=== PATIENT | female | born 1960 ===

== ENCOUNTER 2016-05-17 11:31 | Emergency (ER) | payer MEDICARE, OTHER ==
[2016-05-17] MEDS: ONDANSETRON HCL 4 MG/2 ML 4 MG in SODIUM CHLORIDE 0.9% 100 ML 100 ML IV ONE (12:07)
[2016-05-17 12:16] LABS: BASOPHILS % (AUTO) 1 % (0-3); EOSINOPHILS % (AUTO) 2 % (0-9); HEMATOCRIT 45 % (35-47); MEAN CORPUSCULAR HGB CONC 32.7 gm/dl (32.0-36.0); MEAN CORPUSCULAR VOLUME 82 fL (81-99); MONOCYTES % (AUTO) 6.2 % (0-12)
[2016-05-17] MEDS ORDERED: MORPHINE SULFATE 10 MG/ML SOL ONE ×2 (12:16→13:38)
[2016-05-17] MEDS ORDERED: ONDANSETRON HCL 4 MG/2 ML SOL ONE (12:16)
[2016-05-17 12:26] LABS: ALBUMIN 3.8 gm/dl (3.4-5.0); CALCIUM 8.9 mg/dl (8.5-10.1); POTASSIUM 4.4 mMol/L (3.5-5.1)
[2016-05-17] MEDS: SODIUM CHLORIDE 0.9% 1000ML 1,000 ML IV SCH (12:35)
[2016-05-17] MEDS: SODIUM CHLORIDE 0.9% FLUSH 10 ML SOL IV PRN (12:35)
[2016-05-17] MEDS: ONDANSETRON HCL 4 MG/2 ML SOL IV ONE (12:36)
[2016-05-17] MEDS: MORPHINE SULFATE 10 MG/ML SOL IV ONE ×2 (12:40→13:42)
[2016-05-17 13:25] VITALS: PULSE 63; TEMP 98
[2016-05-17 13:43] LABS: APPEARANCE,URINE Clear; BILIRUBIN,URINE NEGATIVE (NEGATIVE); COLOR,URINE Yellow; GLUCOSE, URINE (UA) NEGATIVE (NEGATIVE); KETONES,URINE NEGATIVE (NEGATIVE); LEUKOCYTE ESTERASE ,URINE NEGATIVE (NEGATIVE); NITRATE,URINE NEGATIVE (NEGATIVE); OCCULT BLOOD,URINE NEGATIVE (NEG-TRACE); UROBILINOGEN,URINE 0.2 (0.2-1.0 EU)
[2016-05-17 13:46] LABS: RBC,URINE 0-2 (0-3AV/HPF); WBC,URINE 0-2 (0-5AV/HPF)
[2016-05-17 14:27] VITALS: BP 162/77; RESP 14; O2SAT 95
== END 2016-05-17 14:13 | disposition home or self-care (01) | DRG 392 ==
LOC: ED 11:31
DX: R10.11 Right upper quadrant pain (principal); B19.20 Unspecified viral hepatitis C without hepatic coma; Z90.49 Acquired absence of other specified parts of digestive tract; Z87.19 Personal history of other diseases of the digestive system
CPT/HCPCS: 36415; 80053; 81001; 82150; 85025; 96365; 96374; 96375; 99284; 99285; J2270; J2405

== ENCOUNTER 2016-06-16 18:36 | Emergency (ER) | payer MEDICARE, OTHER ==
[2016-06-16 19:26] VITALS: RESP 18
[2016-06-16] MEDS ORDERED: SODIUM CHLORIDE 0.9% 1000ML 1,000 ML IV ONE (19:30)
[2016-06-16] MEDS ORDERED: KETOROLAC TROMETHAMINE 30 MG/ML SOL IV ONE (19:30)
[2016-06-16] MEDS ORDERED: ONDANSETRON HCL 4 MG/2 ML SOL IV ONE (19:30)
[2016-06-16] MEDS ORDERED: ALBUTEROL NEB SOL 2.5MG/3ML 1 VIAL SOL NEB ONE (19:31)
[2016-06-16 19:43] LABS: BASOPHILS % (AUTO) 1 % (0-3); EOSINOPHILS % (AUTO) 2 % (0-9); HEMATOCRIT 43 % (35-47); MEAN CORPUSCULAR VOLUME 82 fL (81-99); MONOCYTES % (AUTO) 9.9 % (0-12); NEUTROPHILS % (AUTO) 63.3 % (37-80)
[2016-06-16] MEDS ORDERED: ONDANSETRON HCL 4 MG/2 ML SOL ONE (19:48)
[2016-06-16] MEDS ORDERED: ALBUTEROL NEB SOL 2.5MG/3ML 1 VIAL SOL ONE (19:48)
[2016-06-16] MEDS ORDERED: KETOROLAC TROMETHAMINE 30 MG/ML SOL ONE (19:48)
[2016-06-16 19:55] VITALS: PULSE 88
[2016-06-16] MEDS ORDERED: SODIUM CHLORIDE 0.9% FLUSH 10 ML SOL IV PRN (19:55)
[2016-06-16 20:04] VITALS: BP 153/82; O2SAT 93
[2016-06-16 20:07] LABS: ALBUMIN 3.5 gm/dl (3.4-5.0); CALCIUM 8.6 mg/dl (8.5-10.1); POTASSIUM 4.4 mMol/L (3.5-5.1)
[2016-06-16 20:48] VITALS: TEMP 98.8
[2016-06-16] MEDS ORDERED: PREDNISONE 20 MG TAB PO ONE (21:29)
[2016-06-16] MEDS ORDERED: AZITHROMYCIN 250 MG TAB PO ONE (21:29)
[2016-06-16] MEDS ORDERED: PREDNISONE 20 MG TAB ONE (21:30)
[2016-06-16] MEDS ORDERED: AZITHROMYCIN 250 MG TAB ONE (21:30)
== END 2016-06-16 21:36 | disposition home or self-care (01) | DRG 392 ==
LOC: ED 18:36
DX: R10.11 Right upper quadrant pain (principal); J44.1 Chronic obstructive pulmonary disease with (acute) exacerbation
CPT/HCPCS: 36415; 71010; 80053; 85025; 96365; 96374; 96375; 99284; 99285; J1885; J2405; J7603

== ENCOUNTER 2016-06-19 17:05 | Emergency (ER) | payer MEDICARE, OTHER ==
[2016-06-19 17:10] VITALS: TEMP 98.8
[2016-06-19] MEDS ORDERED: IBUPROFEN 400 MG TAB PO ONE (17:24)
[2016-06-19] MEDS ORDERED: ALBUTEROL/IPRATROPIUM 1 VIAL SOL INH ONE (17:24)
[2016-06-19] MEDS ORDERED: IBUPROFEN 400 MG TAB ONE (17:28)
[2016-06-19] MEDS ORDERED: ALBUTEROL/IPRATROPIUM 1 VIAL SOL ONE (17:29)
[2016-06-19 17:42] LABS: BASOPHILS % (AUTO) 1 % (0-3); EOSINOPHILS % (AUTO) 2 % (0-9); HEMATOCRIT 44 % (35-47); MEAN CORPUSCULAR HGB CONC 32.9 gm/dl (32.0-36.0); MEAN CORPUSCULAR VOLUME 82 fL (81-99); MONOCYTES % (AUTO) 6.6 % (0-12); NEUTROPHILS % (AUTO) 61.8 % (37-80)
[2016-06-19 17:47] VITALS: RESP 20
[2016-06-19 17:52] LABS: CALCIUM 8.4 mg/dl (8.5-10.1); POTASSIUM 3.7 mMol/L (3.5-5.1)
[2016-06-19 17:53] VITALS: PULSE 74; O2SAT 100
[2016-06-19 18:03] VITALS: BP 141/80
== END 2016-06-19 18:14 | disposition home or self-care (01) | DRG 203 ==
LOC: ED 17:05
DX: J40 Bronchitis, not specified as acute or chronic (principal)
CPT/HCPCS: 71020; 80048; 85025; 87430; 99283; J7620

== ENCOUNTER 2016-06-24 20:30 | Emergency (ER) | payer MEDICARE, OTHER ==
[2016-06-24 21:06] VITALS: BP 146/87; TEMP 98.4
[2016-06-24] MEDS ORDERED: ALBUTEROL/IPRATROPIUM 1 VIAL SOL INH ONE (21:19)
[2016-06-24] MEDS ORDERED: ALBUTEROL/IPRATROPIUM 1 VIAL SOL ONE (21:34)
[2016-06-24] MEDS ORDERED: PREDNISONE 20 MG TAB PO ONE (21:54)
[2016-06-24 21:56] VITALS: PULSE 78; RESP 18; O2SAT 94
[2016-06-24] MEDS ORDERED: CEFPROZIL 250 MG/5 ML SUSP.RECON PO ONE (21:57)
[2016-06-24] MEDS ORDERED: PREDNISONE 20 MG TAB ONE (21:57)
[2016-06-24] MEDS ORDERED: CEFPROZIL 250 MG/5 ML SUSP.RECON PO SCH (22:00)
== END 2016-06-24 22:21 | disposition home or self-care (01) | DRG 192 ==
LOC: ED 20:30
DX: J44.1 Chronic obstructive pulmonary disease with (acute) exacerbation (principal)
CPT/HCPCS: 99282; 99283; J7620

== ENCOUNTER 2016-06-27 05:22 | Emergency (ER) | payer MEDICARE, OTHER ==
[2016-06-27 05:23] VITALS: O2SAT 94
[2016-06-27] MEDS ORDERED: ONDANSETRON HCL 4 MG/2 ML SOL IV ONE (05:29)
[2016-06-27] MEDS ORDERED: ONDANSETRON HCL 4 MG/2 ML SOL ONE (05:30)
[2016-06-27] MEDS: SODIUM CHLORIDE 0.9% FLUSH 10 ML SOL IV PRN ×2 (05:32→05:47)
[2016-06-27] MEDS ORDERED: KETOROLAC TROMETHAMINE 30 MG/ML SOL IV ONE (05:42)
[2016-06-27] MEDS ORDERED: KETOROLAC TROMETHAMINE 30 MG/ML SOL ONE (05:46)
[2016-06-27] MEDS ORDERED: LOPERAMIDE HYDROCHLORIDE 2 MG CAP PO ONE (05:53)
[2016-06-27] MEDS ORDERED: SODIUM CHLORIDE 0.9% 1000 ML SOL IV SCH (06:00)
[2016-06-27] MEDS ORDERED: LOPERAMIDE HYDROCHLORIDE 2 MG CAP ONE (06:01)
[2016-06-27 06:05] VITALS: BP 131/85; PULSE 83; RESP 16
[2016-06-27 06:09] VITALS: TEMP 97.3
[2016-06-27 06:10] LABS: BASOPHILS % (AUTO) 1 % (0-3); EOSINOPHILS % (AUTO) 0 % (0-9); HEMATOCRIT 47 % (35-47); MEAN CORPUSCULAR VOLUME 82 fL (81-99); MONOCYTES % (AUTO) 6.3 % (0-12); NEUTROPHILS % (AUTO) 85.7 % (37-80)
[2016-06-27 06:18] LABS: ALBUMIN 3.6 gm/dl (3.4-5.0); CALCIUM 8.9 mg/dl (8.5-10.1)
== END 2016-06-27 07:10 | disposition home or self-care (01) | DRG 392 ==
LOC: ED 05:22
DX: R11.2 Nausea with vomiting, unspecified (principal); E86.0 Dehydration; R19.7 Diarrhea, unspecified
CPT/HCPCS: 80053; 82150; 85025; 99285; J1885; J2405

== ENCOUNTER 2017-03-15 19:41 | Emergency (ER) | payer MEDICARE, OTHER ==
[2017-03-15 20:30] LABS: BASOPHILS % (AUTO) 1 % (0-3); EOSINOPHILS % (AUTO) 1 % (0-9); HEMATOCRIT 44 % (35-47); MEAN CORPUSCULAR HGB CONC 33.3 gm/dl (32.0-36.0); MEAN CORPUSCULAR VOLUME 84 fL (81-99); MONOCYTES % (AUTO) 8.1 % (0-12); NEUTROPHILS % (AUTO) 82.6 % (37-80)
[2017-03-15 20:44] LABS: ALBUMIN 3.6 gm/dl (3.4-5.0); POTASSIUM 4.3 mMol/L (3.5-5.1)
[2017-03-15 20:59] VITALS: BP 177/95; PULSE 98; RESP 24; TEMP 102; O2SAT 92
[2017-03-15] MEDS ORDERED: KETOROLAC TROMETHAMINE 30 MG/ML SOL IM ONE (21:15)
[2017-03-15] MEDS ORDERED: LEVOFLOXACIN 500 MG TAB PO ONE (21:16)
[2017-03-15] MEDS ORDERED: KETOROLAC TROMETHAMINE 30 MG/ML SOL ONE (21:17)
[2017-03-15] MEDS ORDERED: LEVOFLOXACIN 500 MG TAB ONE (21:19)
== END 2017-03-15 21:45 | disposition home or self-care (01) | DRG 153 ==
LOC: ED 19:41
DX: J11.1 Influenza due to unidentified influenza virus with other respiratory manifestations (principal); J44.9 Chronic obstructive pulmonary disease, unspecified; Z72.0 Tobacco use
CPT/HCPCS: 36415; 80053; 82150; 85025; 87804; 96372; 99283; 99284; J1885; A9270-GY

== ENCOUNTER 2017-05-05 08:30 | Day surgery (SDC) | payer MEDICARE, OTHER ==
[~2017-05-05 08:30] MED LIST: LIDOCAINE HCL 1% MPF SOL ONE; PROPOFOL 500 MG/50 ML EMU IV ONE
[2017-05-05 11:02] VITALS: TEMP 98.2
[2017-05-05 11:16] VITALS: BP 151/89; PULSE 85; RESP 20; O2SAT 97
== END 2017-05-05 11:38 | disposition home or self-care (01) | DRG 392 ==
LOC: SURG 08:30
PROVIDERS: ATTEND Internal Medicine Gastroenterology
DX: R10.11 Right upper quadrant pain (principal); J39.2 Other diseases of pharynx; K63.89 Other specified diseases of intestine; K29.70 Gastritis, unspecified, without bleeding
CPT/HCPCS: J2001; J2704

== ENCOUNTER 2017-09-19 17:52 | Emergency (ER) | payer OTHER, MEDICARE ==
[2017-09-19 18:34] VITALS: RESP 16; TEMP 96.8
[2017-09-19] MEDS ORDERED: IBUPROFEN 200 MG/10 ML SUS PO PRN (19:14)
[2017-09-19] MEDS ORDERED: IBUPROFEN 600 MG TAB ONE (19:15)
[2017-09-19 20:13] VITALS: BP 159/92; PULSE 80; O2SAT 96
== END 2017-09-19 20:01 | disposition home or self-care (01) | DRG 90 ==
LOC: ED 17:52
DX: S06.0X0A Concussion without loss of consciousness, initial encounter (principal)
CPT/HCPCS: 70450; 72125; 99283; A9270-GY

== ENCOUNTER 2017-12-30 22:56 | Emergency (ER) | payer MEDICARE, OTHER ==
[2017-12-30 23:25] LABS: BASOPHILS % (AUTO) 1 % (0-3); EOSINOPHILS % (AUTO) 1 % (0-9); HEMATOCRIT 46 % (35-47); LYMPHOCYTES % (AUTO) 18.1 % (10-50); MEAN CORPUSCULAR HEMOGLOBIN 28.5 pg (27.0-32.0); MEAN CORPUSCULAR HGB CONC 32.6 gm/dl (32.0-36.0); MEAN CORPUSCULAR VOLUME 88 fL (81-99); MONOCYTES % (AUTO) 6.6 % (0-12); NEUTROPHILS % (AUTO) 73.6 % (37-80)
[2017-12-30] MEDS ORDERED: ALBUTEROL/IPRATROPIUM 1 VIAL SOL INH ONE (23:35)
[2017-12-30 23:39] LABS: ALBUMIN 3.2 gm/dl (3.4-5.0); BILIRUBIN,TOTAL 0.3 mg/dl (0.2-1.0); CALCIUM 8.3 mg/dl (8.5-10.1); CARBON DIOXIDE 30.2 mEq/L (21-32); CREATININE 0.8 mg/dl (0.60-1.00); POTASSIUM 3.9 mMol/L (3.5-5.1)
[2017-12-30] MEDS ORDERED: KETOROLAC TROMETHAMINE 30 MG/ML SOL ONE (23:43)
[2017-12-30] MEDS ORDERED: KETOROLAC TROMETHAMINE 30 MG/ML SOL IV ONE (23:45)
[2017-12-30] MEDS ORDERED: ALBUTEROL/IPRATROPIUM 1 VIAL SOL ONE (23:55)
[2017-12-31 00:02] VITALS: RESP 20; TEMP 98.4
[2017-12-31 00:11] LABS: HEMOGLOBIN A1C 6.9 % (4.8-6.0)
[2017-12-31] MEDS ORDERED: HYDROMORPHONE HCL 2 MG/ML SOL IV ONE (00:19)
[2017-12-31] MEDS ORDERED: ONDANSETRON HCL 4 MG/2 ML SOL IV ONE (00:20)
[2017-12-31] MEDS ORDERED: HYDROMORPHONE 1 MG/ML SYRINGE ONE (00:23)
[2017-12-31] MEDS ORDERED: ONDANSETRON HCL 4 MG/2 ML SOL ONE (00:23)
[2017-12-31 00:37] LABS: APPEARANCE,URINE Clear; BILIRUBIN,URINE NEGATIVE (NEGATIVE); COLOR,URINE Yellow; GLUCOSE, URINE (UA) TRACE (NEGATIVE); KETONES,URINE NEGATIVE (NEGATIVE); LEUKOCYTE ESTERASE ,URINE NEGATIVE (NEGATIVE); NITRATE,URINE NEGATIVE (NEGATIVE); OCCULT BLOOD,URINE TRACE INTACT (NEG-TRACE)
[2017-12-31 00:43] LABS: BACTERIA NEGATIVE (< 1+); CRYSTALS NEGATIVE (0-3 AVE/HPF); RBC,URINE 0-3 (0-3AV/HPF)
[2017-12-31 01:02] VITALS: BP 172/81; PULSE 81; O2SAT 93
[2017-12-31] MEDS ORDERED: DIAZEPAM 5 MG TAB ONE (01:54)
[2017-12-31] MEDS ORDERED: DIAZEPAM 5 MG TAB PO ONE (01:57)
== END 2017-12-31 02:15 | disposition home or self-care (01) | DRG 203 ==
LOC: ED 22:56
DX: J45.901 Unspecified asthma with (acute) exacerbation (principal); M54.6 Pain in thoracic spine; R06.02 Shortness of breath
CPT/HCPCS: 71275; 80053; 81001; 82150; 83036; 85025; 85378; 96374; 96375; 99283; 99285; J1885; J2405; Q9967; A9270-GY; J1170

== ENCOUNTER 2018-02-28 13:04 | Emergency (ER) | payer MEDICARE, OTHER ==
[2018-02-28 13:21] VITALS: BP 146/85; PULSE 70; RESP 16; TEMP 97.6; O2SAT 97
[2018-02-28] MEDS ORDERED: OXYCODONE HYDROCHLORIDE 5 MG TAB PO PRN (14:10)
[2018-02-28] MEDS ORDERED: OXYCODONE HYDROCHLORIDE 10 MG TER ONE (14:27)
[2018-02-28] MEDS ORDERED: OXYCODONE HYDROCHLORIDE 5 MG TAB ONE (14:32)
[2018-02-28 14:34] LABS: BASOPHILS % (AUTO) 1 % (0-3); EOSINOPHILS % (AUTO) 1 % (0-9); HEMATOCRIT 49 % (35-47); HEMOGLOBIN 15.9 gm/dl (12.0-15.5); LYMPHOCYTES % (AUTO) 15.6 % (10-50); MEAN CORPUSCULAR HEMOGLOBIN 28.1 pg (27.0-32.0); MEAN CORPUSCULAR HGB CONC 32.2 gm/dl (32.0-36.0); MEAN CORPUSCULAR VOLUME 87 fL (81-99); MONOCYTES % (AUTO) 5.4 % (0-12); NEUTROPHILS % (AUTO) 77.2 % (37-80)
== END 2018-02-28 15:37 | disposition home or self-care (01) | DRG 156 ==
LOC: ED 13:04
DX: K11.20 Sialoadenitis, unspecified (principal); I10 Essential (primary) hypertension; R68.84 Jaw pain
CPT/HCPCS: 36415; 70490; 85025; 87430; 99282; 99283; A9270-GY

== ENCOUNTER 2018-04-29 13:07 | Emergency (ER) | payer MEDICARE, OTHER ==
[2018-04-29 13:21] VITALS: TEMP 96.3
[2018-04-29] MEDS ORDERED: MORPHINE SULFATE 10 MG/ML SOL IV ONE (13:58)
[2018-04-29] MEDS ORDERED: SODIUM CHLORIDE 0.9% 1000ML 1,000 ML IV ONE (13:58)
[2018-04-29 14:08] LABS: BASOPHILS % (AUTO) 1 % (0-3); EOSINOPHILS % (AUTO) 1 % (0-9); HEMATOCRIT 48 % (35-47); HEMOGLOBIN 15.4 gm/dl (12.0-15.5); LYMPHOCYTES % (AUTO) 19.7 % (10-50); MEAN CORPUSCULAR HEMOGLOBIN 27.8 pg (27.0-32.0); MEAN CORPUSCULAR HGB CONC 31.9 gm/dl (32.0-36.0); MEAN CORPUSCULAR VOLUME 87 fL (81-99); NEUTROPHILS % (AUTO) 73.2 % (37-80)
[2018-04-29] MEDS ORDERED: TRAMADOL HYDROCHLORIDE 50 MG TAB PO ONE (14:33)
[2018-04-29 14:40] LABS: ALBUMIN 3.3 gm/dl (3.4-5.0); ALKALINE PHOSPHATASE 145 IU/L (46-116); ALT 17 IU/L (14-63); AST 13 IU/L (15-37); BILIRUBIN,TOTAL 0.3 mg/dl (0.2-1.0); BLOOD UREA NITROGEN 14 mg/dl (7-18); CALCIUM 8.2 mg/dl (8.5-10.1); CARBON DIOXIDE 27.7 mEq/L (21-32); CHLORIDE 107 mMol/L (98-107); CREATININE 0.64 mg/dl (0.60-1.00); GLUCOSE 140 mg/dl (74-106); SODIUM 142 mMol/L (136-145); TROP I < 0.017 ng/ml (0.000-0.056)
[2018-04-29] MEDS ORDERED: TRAMADOL HYDROCHLORIDE 50 MG TAB ONE (14:50)
[2018-04-29 17:40] VITALS: BP 147/81; PULSE 68; RESP 16; O2SAT 93
== END 2018-04-29 15:05 | disposition home or self-care (01) | DRG 556 ==
LOC: ED 13:07
DX: M25.512 Pain in left shoulder (principal); I10 Essential (primary) hypertension
CPT/HCPCS: 36415; 80053; 84484; 85025; 85378; 93005; 99282; 99283; A9270-GY

== ENCOUNTER 2018-06-15 07:18 | Day surgery (SDC) | payer MEDICARE, OTHER ==
[2018-06-15] MEDS ORDERED: PROPOFOL 500 MG/50 ML EMU IV ONE (07:37)
[2018-06-15] MEDS ORDERED: LIDOCAINE HCL 1% MPF 30 SOL ONE (07:37)
[2018-06-15] MEDS ORDERED: FLEET ENEMA PR ONE ×2 (07:54→08:18)
[2018-06-15 09:56] VITALS: TEMP 97.7
[2018-06-15 10:19] VITALS: RESP 20
[2018-06-15 10:27] VITALS: BP 165/85; PULSE 71; O2SAT 95
== END 2018-06-15 10:43 | disposition home or self-care (01) | DRG 951 ==
LOC: SURG 07:18
PROVIDERS: ATTEND Internal Medicine Gastroenterology
DX: Z12.11 Encounter for screening for malignant neoplasm of colon (principal); K57.32 Diverticulitis of large intestine without perforation or abscess without bleeding; E11.9 Type 2 diabetes mellitus without complications; Z86.010 Personal history of colon polyps; R10.9 Unspecified abdominal pain; K59.00 Constipation, unspecified; D12.5 Benign neoplasm of sigmoid colon; D12.3 Benign neoplasm of transverse colon; K64.8 Other hemorrhoids
CPT/HCPCS: 82962; A9270-GY; J2001; J2704

== ENCOUNTER 2018-08-26 03:03 | Emergency (ER) | payer MEDICARE, OTHER ==
[2018-08-26] MEDS ORDERED: SODIUM CHLORIDE 0.9% FLUSH 10 ML SOL IV PRN (03:09)
[2018-08-26] MEDS ORDERED: ASPIRIN 81 MG CHEWABLE CTB PO STA (03:09)
[2018-08-26] MEDS ORDERED: ASPIRIN 81 MG CHEWABLE CTB ONE (03:11)
[2018-08-26] MEDS ORDERED: NITROGLYCERIN 0.4 MG TAB SL ONE (03:11)
[2018-08-26] MEDS ORDERED: MORPHINE SULFATE 10 MG/ML SOL ONE (03:11)
[2018-08-26] MEDS: NITROGLYCERIN 0.4 MG TAB SL PRN ×3 (03:13→03:23)
[2018-08-26 03:26] VITALS: TEMP 98.3
[2018-08-26 03:35] LABS: BASOPHILS % (AUTO) 1 % (0-3); EOSINOPHILS % (AUTO) 2 % (0-9); HEMATOCRIT 50 % (35-47); HEMOGLOBIN 16.8 gm/dl (12.0-15.5); MEAN CORPUSCULAR HEMOGLOBIN 28.1 pg (27.0-32.0); MEAN CORPUSCULAR HGB CONC 33.3 gm/dl (32.0-36.0); MEAN CORPUSCULAR VOLUME 84 fL (81-99); MONOCYTES % (AUTO) 6.3 % (0-12); NEUTROPHILS % (AUTO) 65.1 % (37-80)
[2018-08-26 03:42] LABS: ALBUMIN 3.5 gm/dl (3.4-5.0); ALKALINE PHOSPHATASE 154 IU/L (46-116); ALT 22 IU/L (14-63); AST 12 IU/L (15-37); BILIRUBIN,TOTAL 0.3 mg/dl (0.2-1.0); BLOOD UREA NITROGEN 15 mg/dl (7-18); CALCIUM 8.6 mg/dl (8.5-10.1); CARBON DIOXIDE 28.2 mEq/L (21-32); CHLORIDE 102 mMol/L (98-107); CREATINE KINASE 49 U/L (26-192); CREATININE 0.68 mg/dl (0.60-1.00); GLUCOSE 147 mg/dl (74-106); SODIUM 137 mMol/L (136-145); TOTAL PROTEIN 7.3 gm/dl (6.4-8.2); TROP I < 0.017 ng/ml (0.000-0.056)
[2018-08-26 03:45] LABS: POTASSIUM 4.2 mMol/L (3.5-5.1)
[2018-08-26 03:48] LABS: INR 0.95 (0.86-1.12)
[2018-08-26] MEDS ORDERED: LORAZEPAM 2 MG/ML SOL IV ONE (03:52)
[2018-08-26] MEDS ORDERED: LORAZEPAM 2 MG/ML SOL ONE (03:54)
[2018-08-26 04:03] VITALS: BP 137/83; PULSE 77; RESP 18; O2SAT 92
== END 2018-08-26 04:36 | disposition home or self-care (01) | DRG 313 ==
LOC: ED 03:03
DX: R07.9 Chest pain, unspecified (principal); M54.9 Dorsalgia, unspecified; I10 Essential (primary) hypertension
CPT/HCPCS: 71045; 80053; 82550; 84484; 85025; 85610; 85730; 93005; 96374; 99283; 99284; J2060; J2270; A9270-GY

== ENCOUNTER 2018-08-28 18:14 | Emergency (ER) | payer MEDICARE, OTHER ==
[2018-08-28] MEDS ORDERED: NITROGLYCERIN 0.4 MG TAB SL PRN (18:30)
[2018-08-28] MEDS ORDERED: SODIUM CHLORIDE 0.9% FLUSH 10 ML SOL IV PRN (18:30)
[2018-08-28] MEDS ORDERED: ASPIRIN 81 MG CHEWABLE CTB ONE (18:42)
[2018-08-28 18:43] LABS: BASOPHILS % (AUTO) 1 % (0-3); EOSINOPHILS % (AUTO) 2 % (0-9); HEMATOCRIT 51 % (35-47); HEMOGLOBIN 16.7 gm/dl (12.0-15.5); LYMPHOCYTES % (AUTO) 19.4 % (10-50); MEAN CORPUSCULAR HEMOGLOBIN 27.6 pg (27.0-32.0); MEAN CORPUSCULAR HGB CONC 32.9 gm/dl (32.0-36.0); MEAN CORPUSCULAR VOLUME 84 fL (81-99); NEUTROPHILS % (AUTO) 72.8 % (37-80)
[2018-08-28] MEDS ORDERED: ASPIRIN 81 MG CHEWABLE CTB PO STA (18:43)
[2018-08-28] MEDS ORDERED: NITROGLYCERIN 0.4 MG TAB SL ONE (18:56)
[2018-08-28 19:03] LABS: ALBUMIN 3.6 gm/dl (3.4-5.0); ALKALINE PHOSPHATASE 145 IU/L (46-116); ALT 27 IU/L (14-63); AST 27 IU/L (15-37); BILIRUBIN,TOTAL 0.4 mg/dl (0.2-1.0); BLOOD UREA NITROGEN 15 mg/dl (7-18); CALCIUM 8.4 mg/dl (8.5-10.1); CARBON DIOXIDE 27.8 mEq/L (21-32); CHLORIDE 102 mMol/L (98-107); CREATININE 0.54 mg/dl (0.60-1.00); GLUCOSE 149 mg/dl (74-106); POTASSIUM 4.6 mMol/L (3.5-5.1); SODIUM 136 mMol/L (136-145); TOTAL PROTEIN 7.4 gm/dl (6.4-8.2); TROP I < 0.017 ng/ml (0.000-0.056)
[2018-08-28 19:08] VITALS: TEMP 97.9
[2018-08-28] MEDS ORDERED: SODIUM CHLORIDE 0.9% 1000ML 1,000 ML IV ONE (19:15)
[2018-08-28] MEDS ORDERED: HYDROMORPHONE 1 MG/ML SYRINGE IV PRN ×2 (19:15→20:34)
[2018-08-28] MEDS ORDERED: KETOROLAC TROMETHAMINE 30 MG/ML SOL IV ONE (19:15)
[2018-08-28] MEDS ORDERED: KETOROLAC TROMETHAMINE 30 MG/ML SOL ONE (19:25)
[2018-08-28 19:40] VITALS: RESP 15
[2018-08-28] MEDS ORDERED: HYDROMORPHONE 1 MG/ML SYRINGE ONE ×2 (19:40→20:40)
[2018-08-28 21:54] VITALS: O2SAT 96
[2018-08-28 21:55] VITALS: BP 164/88; PULSE 76
== END 2018-08-28 22:03 | disposition home or self-care (01) | DRG 313 ==
LOC: ED 18:14
DX: R07.9 Chest pain, unspecified (principal); M54.6 Pain in thoracic spine
CPT/HCPCS: 71275; 80053; 83880; 84484; 85025; 85379; 93005; 96365; 96366; 96374; 96375; 99283; 99285; J1885; Q9967; A9270-GY; J1170

== ENCOUNTER 2018-09-20 17:31 | Emergency (ER) | payer MEDICARE, OTHER ==
[2018-09-20 17:36] VITALS: RESP 18; TEMP 98.6
[2018-09-20] MEDS ORDERED: DIPHENHYDRAMINE 50 MG/ML SOL IV ONE (17:38)
[2018-09-20] MEDS ORDERED: SODIUM CHLORIDE 0.9% 500 ML 500 ML IV SCH (17:45)
[2018-09-20] MEDS ORDERED: DIPHENHYDRAMINE 50 MG/ML SOL ONE (17:50)
[2018-09-20] MEDS ORDERED: AMPICILLIN/SULBACTAM 3 GM PDS 3 GM in SODIUM CHLORIDE 0.9% 100 ML 100 ML IV SCH (18:15)
[2018-09-20] MEDS ORDERED: AMPICILLIN/SULBACTAM 3 GM PDS ONE (18:19)
[2018-09-20] MEDS ORDERED: KETOROLAC TROMETHAMINE 30 MG/ML SOL IV ONE (19:35)
[2018-09-20] MEDS ORDERED: HYDROMORPHONE 1 MG/ML SYRINGE IV ONE (19:38)
[2018-09-20] MEDS ORDERED: KETOROLAC TROMETHAMINE 30 MG/ML SOL ONE (19:54)
[2018-09-20] MEDS ORDERED: HYDROMORPHONE 1 MG/ML SYRINGE ONE (20:16)
[2018-09-20 21:18] VITALS: BP 149/71; PULSE 78; O2SAT 97
== END 2018-09-20 21:15 | disposition home or self-care (01) | DRG 156 ==
LOC: ED 17:31
DX: K11.21 Acute sialoadenitis (principal); J02.9 Acute pharyngitis, unspecified; R59.9 Enlarged lymph nodes, unspecified
CPT/HCPCS: 36415; 70490; 80053; 83605; 85025; 87430; 93005; 96365; 96366; 96374; 96375; 99283; 99285; J0295; J1200; J1885; J1170

== ENCOUNTER 2018-10-07 05:55 | Emergency (ER) | payer MEDICARE, OTHER ==
[2018-10-07 05:56] VITALS: O2SAT 97
[2018-10-07 06:09] VITALS: RESP 18; TEMP 97.5
[2018-10-07 06:43] VITALS: BP 135/93; PULSE 75
[2018-10-07 06:50] LABS: BASOPHILS % (AUTO) 1 % (0-3); EOSINOPHILS % (AUTO) 1 % (0-9); HEMATOCRIT 53 % (35-47); HEMOGLOBIN 16.9 gm/dl (12.0-15.5); LYMPHOCYTES % (AUTO) 29.9 % (10-50); MEAN CORPUSCULAR HEMOGLOBIN 28.6 pg (27.0-32.0); MEAN CORPUSCULAR HGB CONC 31.7 gm/dl (32.0-36.0); MEAN CORPUSCULAR VOLUME 90 fL (81-99); MONOCYTES % (AUTO) 5.8 % (0-12); NEUTROPHILS % (AUTO) 62.1 % (37-80)
[2018-10-07] MEDS ORDERED: HYDROMORPHONE HCL 2 MG/ML SOL IM ONE ×2 (06:58→08:23)
[2018-10-07] MEDS ORDERED: HYDROMORPHONE 1 MG/ML SYRINGE ONE ×2 (06:58→08:24)
[2018-10-07 07:02] LABS: CALCIUM 8.6 mg/dl (8.5-10.1); CARBON DIOXIDE 29.4 mEq/L (21-32); CREATININE 0.59 mg/dl (0.60-1.00)
[2018-10-07 07:07] LABS: INR 0.97 (0.87-1.13)
[2018-10-07] MEDS ORDERED: PHENYLEPHRINE HCL 0.5% SPR NAS ONE (07:26)
[2018-10-07] MEDS ORDERED: ONDANSETRON 4 MG ODT BU ONE (07:26)
[2018-10-07] MEDS ORDERED: ONDANSETRON 4 MG ODT ONE (07:27)
== END 2018-10-07 08:45 | disposition home or self-care (01) | DRG 151 ==
LOC: ED 05:55
DX: R04.0 Epistaxis (principal); E11.9 Type 2 diabetes mellitus without complications
CPT/HCPCS: 30905; 80048; 85025; 85610; 96372; 99283; A9270-GY; J1170

== ENCOUNTER 2018-10-10 03:42 | Emergency (ER) | payer MEDICARE, OTHER ==
[2018-10-10] MEDS ORDERED: LIDOCAINE HCL 2% GEL TOP ONE ×2 (04:15→04:18)
[2018-10-10] MEDS ORDERED: IBUPROFEN 400 MG TAB PO ONE (04:24)
[2018-10-10 04:35] VITALS: TEMP 97.8
[2018-10-10] MEDS ORDERED: IBUPROFEN 400 MG TAB ONE (04:37)
[2018-10-10] MEDS ORDERED: POTASSIUM NITRATE TOP PRN (04:45)
[2018-10-10] MEDS ORDERED: SODIUM CHLORIDE 0.9% 1000ML 1,000 ML IV SCH (04:45)
[2018-10-10] MEDS ORDERED: [UNRECOGNIZED DRUG - OTHER] TOP PRN (04:45)
[2018-10-10 04:51] LABS: BASOPHILS % (AUTO) 0 % (0-3); EOSINOPHILS % (AUTO) 1 % (0-9); HEMATOCRIT 52 % (35-47); HEMOGLOBIN 16.1 gm/dl (12.0-15.5); MEAN CORPUSCULAR HEMOGLOBIN 28.3 pg (27.0-32.0); MEAN CORPUSCULAR HGB CONC 31.3 gm/dl (32.0-36.0); MEAN CORPUSCULAR VOLUME 91 fL (81-99); MONOCYTES % (AUTO) 7.2 % (0-12); NEUTROPHILS % (AUTO) 71.2 % (37-80)
[2018-10-10 05:09] LABS: ALBUMIN 3.6 gm/dl (3.4-5.0); BILIRUBIN,TOTAL 0.8 mg/dl (0.2-1.0); CALCIUM 8.4 mg/dl (8.5-10.1); CARBON DIOXIDE 30.6 mEq/L (21-32); CREATININE 0.58 mg/dl (0.60-1.00); TOTAL PROTEIN 7.4 gm/dl (6.4-8.2)
[2018-10-10 05:30] VITALS: RESP 18; O2SAT 92
[2018-10-10 06:32] VITALS: BP 138/76; PULSE 74
== END 2018-10-10 06:45 | disposition home or self-care (01) | DRG 151 ==
LOC: ED 03:42
DX: R04.0 Epistaxis (principal)
CPT/HCPCS: 30906; 80053; 85025; 85610; 85730; 96365; 96366; 99282; 99285; A6402; A9270-GY

== ENCOUNTER 2018-10-10 11:39 | Emergency (ER) | payer MEDICARE, OTHER ==
[2018-10-10 12:02] VITALS: BP 119/75; PULSE 66; RESP 20; TEMP 97.5; O2SAT 96
== END 2018-10-10 12:42 | disposition home or self-care (01) | DRG 151 ==
LOC: ED 11:39
DX: R04.0 Epistaxis (principal)
CPT/HCPCS: 99282